=== PATIENT | female | born 1995 | race African-American/Black ===

== ENCOUNTER 2020-03-19 14:15 | Outpatient (CLI) | payer OTHER, SELFPAY ==
[~2020-03-19] VITALS: Ht 167.6 cm; Wt 92.3 kg
[2020-03-19 14:34] VITALS: BP 110/57
[2020-03-19] MEDS ORDERED: ACET-683 PO (14:36)
[2020-03-19] MEDS ORDERED: PRENTAB9 PO (14:36)
[2020-03-19 15:30] VITALS: BP 120/60
--- NOTE | 2020-03-19 15:47 | IPNPDOC ---
Obstetrical Progress Note Date of Service Mar 19, 2020 Subjective 24yo at 29wks presents with intermitting sharp pelvic pain. Worse with movement and stretching. Denies vaginal bleeding, f/c/n/v/, dysuria, flank pain, LOF or ctx. Reports active movement. O: vss, AF Cat 1 tracing gen: well appearing abd: soft, nttp UA; wnl A/P: 24yo at 29wk with round ligament pain. reassuring status -home with abdominal binder - f/u Apr 08 at OB appt. Objective Vital Signs Date Time Temp Pulse Resp B/P (MAP) Pulse Ox O2 Delivery O2 Flow Rate FiO2 03/19/20 15:30 97.0 93 18 120/60 (80) 03/19/20 14:34 98 Room Air Assessment Variability: Moderate Heart Rate Tracing: Category I Tocometer Contractions: No Assessment and Plan Age: 24 : 2 Livin Status: Reassuring CONI ALVARES MD. Mar 19, 2020 15:47
== END 2020-03-19 15:34 | disposition home or self-care (01) ==
LOC: M LDO 14:15
PROVIDERS: ATTEND Obstetrics & Gynecology
DX: O26.893 Other specified pregnancy related conditions, third trimester (principal); R10.2 Pelvic and perineal pain; Z3A.29 29 weeks gestation of pregnancy
CPT/HCPCS: 81001; G0378; G0463

== ENCOUNTER 2020-05-22 00:27 | Outpatient (CLI) | payer OTHER ==
[~2020-05-22] VITALS: Ht 167.6 cm; Wt 96.7 kg
[~2020-05-22 00:27] MED LIST: ACET-683 PO; PRENTAB9 PO
[2020-05-22 00:59] VITALS: BP 115/64
[2020-05-22 02:02] VITALS: BP 110/58
[2020-05-22 02:56] VITALS: BP 124/67
--- NOTE | 2020-05-22 04:03 | IPNPDOC ---
Text Note Date of Service The patient was seen on 05/22/20. NOTE 24 YO SEEN TRIAGE COMPLAINTS CONTRACTIONS Q 6 MINUTES MODERATE INTENSITY NO VAGINAL LOSS NO BLEEDING GOOD MOVEMENT AT 38.2 WEEKS RISK FACTORS PP DEPRESSION LATE TRANSFER OF CARE PLAN EXAMINATION CERVIX POSTERIOR 1 CM THICK REVIEWED CATAGORY 1 STRIP. RECHECK 1 HOUR LATER CONTRACTIONS SPACED OUT NO CHANGE IN CERVIX PATIENT DISCHARGED WITH PRECAUTIONS UNDELIVERED VS,Fishbone, I+O VS, Fishbone, I+O Vital Signs Date Time Temp Pulse Resp B/P (MAP) Pulse Ox O2 Delivery O2 Flow Rate FiO2 05/22/20 02:56 95 124/67 (86) 05/22/20 02:56 98.1 Erich Putnam MD May 22, 2020 04:02
== END 2020-05-22 03:00 | disposition home or self-care (01) ==
LOC: M LDO 00:27
PROVIDERS: ATTEND Obstetrics & Gynecology
DX: O47.1 False labor at or after 37 completed weeks of gestation (principal); Z3A.38 38 weeks gestation of pregnancy
CPT/HCPCS: 59025; G0378; G0463

== ENCOUNTER 2020-05-29 16:35 | Outpatient (CLI) | payer OTHER ==
[~2020-05-29] VITALS: Ht 167.6 cm; Wt 98.6 kg
[2020-05-29 16:50] VITALS: BP 122/71
--- NOTE | 2020-05-29 17:59 | IPNPDOC ---
Text Note Date of Service The patient was seen on 05/29/20. NOTE 25 yo at 39+1 weeks gestation presents to L&D with the complaint of intermittent contractions and pelvic pressure. She also reports some brown discharge. She denies leaking fluid or significant bleeding. She endorses excellent movement. She had her membranes stripped in the office yesterday and her symptoms started after that. Chaperoned by L&D RN Vitals - VSS, afebrile, normotensive, non tachycardic General - Laying in bed, NAD Abdomen - Gravid uterus. No fundal tenderness Cervix - 2/50/-4. Posterior FHR tracing: Cat I with moderate variability, +accels, no decels. No discrete ctx on toco. Cervix unchanged from exam in the office yesterday. Reassuring status. Patient discharged home with return precautions. IOL scheduled for 03Jun2020. All patient questions answered. 20 minutes of patient care Gopal Greene DO VS,Jeronimo, I+O VS, Elviae, I+O Vital Signs Date Time Temp Pulse Resp B/P (MAP) Pulse Ox O2 Delivery O2 Flow Rate FiO2 05/29/20 16:50 98.7 90 18 122/71 (88) GOPAL GREENE DO May 29, 2020 17:59
== END 2020-05-29 17:50 | disposition home or self-care (01) ==
LOC: M LDO 16:35
PROVIDERS: ATTEND Obstetrics & Gynecology
DX: O26.893 Other specified pregnancy related conditions, third trimester (principal); Z3A.39 39 weeks gestation of pregnancy
CPT/HCPCS: 59025; G0378; G0463

== ENCOUNTER 2020-06-02 05:10 | Inpatient (IN) | payer OTHER ==
[2020-06-02] VITALS (66 sets, daily range): BP systolic 86–134; BP diastolic 46–86
[~2020-06-02] VITALS: Ht 167.6 cm; Wt 96.8 kg
[2020-06-02] MEDS ORDERED: LACTATED RINGER'S 1000 ML IV STA (06:27)
[2020-06-02] MEDS ORDERED: OXYTOCIN DRIP 30 UNITS in IV 1 EA IV SCH (06:30)
--- NOTE | 2020-06-02 06:45 | HPEPDOC ---
Obstetrical History & Physical General Date of Admission Jun 02, 2020 at 06:28 History of Present Illness 25 yo @ 39+5 by LMP Who is admitted for PROM at 2 am with clear fluids ( N itrizine and ferning, possible pooling?). she denies any contractions of bag bleeding. she reports regular movements. she wishes to receive epidural for pain. no other concerns. Information Provided By: Patient Care Care: Good Care Dating Final EDC: Jun 04, 2020 Final EDC by: LMP LMP: Aug 29, 2019 Estimated Date of Confinement: Jun 04, 2020 EGA at Admission: 39 (39+5) Antepartum Course Diagnos(e)s 1, HX OF Depression 2. CAMELIA at 24 wks from [place] Height (inches): 66 Pre- weight (lbs.): 175 Admission Weight (lbs.): 213 Change in Weight (lbs.): 28 Past Medical History Past Obstetrical History : Past Obstetrical History: Multigravida Type of Delivery: Spontaneous Vaginal Del. Sex of Infant: Female Complications: No [employer] History: No pertinent history Past Medical History Medical History Post depression Surgical History: Denies/None, Tooth extraction, [place] teeth Family History Significant Family History: No pertinent family hx Social History Marital Status: Family situation: Spouse/partner home * Smoker: non-smoker Alcohol: Denies Drugs: denies Abuse Violence Screening Have you been hit/kicked/slapp: No Have you been sexually assault: No Imunizations Tdap status: current Influenza Status: needs Medications Scheduled No.137/Iron/Folic Acd ( Vitamin Tablet) 1 Each Tablet, 1 TAB PO DAILY Scheduled PRN Acetaminophen (Acetaminophen) 500 Mg Tablet, 1,000 MG PO Q6H PRN for HEADACHE Physical Examination Physical Examination GENERAL: Alert and oriented times three. BREAST: . ABDOMEN: Gravid and non-tender to touch. FETUS: Is vertex (VTX) by sterile vaginal examination and US HEART RATE: Regular rate and rhythm. LUNGS: Clear to auscultation (CTA). EXTREMITIES: No edema. sve: 4/50/-2, cephalic by US, FLORES 5 cm Vital Signs/I&O Vital Signs Date Time Temp Pulse Resp B/P (MAP) Pulse Ox O2 Delivery O2 Flow Rate FiO2 06/02/20 05:31 98.2 82 118/65 (82) Laboratory Data Urine Culture: No Growth Pertinent Laboratoy Data Blood Type: B+ RBC Antibody Screen: Negative HIV: Negative Hepatitis B: Negative Hepatitis C: Unknown Rapid Plasma Reagin: Nonreactive Rubella: Immune Varicella: Immune Chlamydia/Gonorrhea: Negative Group B Streptococcus: Negative Quad Screen Test: Unknown Cystic Fibrosis: Unknown Glucose Tolerance Test: 105 Anatomy Ultrasound Placenta Location: Posterior Normal Anatomy: Yes Placenta Previa: No Steroid Therapy Steroid Therapy: No Vaginal Examination Dilation: 4 cm Effacement: 50% Station: -2 Cervical Consistency: Soft Cervical Position: Middle Presentation: Cephalic presentation Assessment Heart Rate (FHR): 135 Variability: Moderate Accelerations: Positive Decelerations: None Tocometer Contractions: No Frequency: irregular Duration: less than 60 seconds Strength: palpated as mild Multi-drug resistant Organism: No history of MDRO Assessment/Plan Assessment 25 yo @ 39+5 by LMP Who is admitted for PROM at 2 am with clear fluids. GBS neg, RH positive. cat I tracing on admission. 1. HX of depression Plan Admit and orient. Edge Stitcher and consent. Diet:clear Group B Streptococcus (GBS) negative. Labs and intravenous (IV) per unit protocol. Counseled on Pitocin and Augmentation of labor (IOL). Lactated Ringers (LR): Bolus 1000 mL, then at 125 mL/hr. Anticipate normal spontaneous delivery (). C-S as appropriate. SEVERO CASSIDY MD Jun 02, 2020 06:45
[2020-06-02 07:12] LABS: HEMATOCRIT 36.6 % (36.0-47.0); HEMOGLOBIN 11.6 g/dl (12.0-15.5); MEAN CORPUSCULAR HEMOGLOBIN 26.4 pg (27.0-33.0); MEAN CORPUSCULAR HGB CONC 31.7 g/dl (32.0-36.5); MEAN CORPUSCULAR VOLUME 83.2 fl (80.0-96.0); PLATELET COUNT, AUTOMATED 204 10^3/uL (150-450); WHITE BLOOD COUNT 9.9 10^3/uL (4.0-10.0)
[2020-06-02] MEDS ORDERED: FENTANYL 2MCG/ML ROPIVACAINE 0.2% IN 0.9% NACL 100ML IVBAG As Ordered ONE (08:00)
[2020-06-02] MEDS ORDERED: ePHEDrine SULFATE 25 MG/5 ML(5MG/ML) SYRINGE As Ordered ONE ×2 (09:13→11:59)
[2020-06-02] MEDS ORDERED: diphenhydrAMINE 50MG/ML VIAL (J1200) IV PRN (09:15)
[2020-06-02] MEDS ORDERED: EPIDURAL/PCA KEYS XX PRN (09:15)
[2020-06-02] MEDS ORDERED: ONDANSETRON 4MG/2ML VIAL IV PRN (09:15)
[2020-06-02] MEDS ORDERED: EPIDURAL COMMENT XX SCH (09:15)
[2020-06-02] MEDS ORDERED: FENTANYL/ROPIVACAINE/NACL BAG 100 ML EPIDURAL SCH (09:15)
[2020-06-02] MEDS ORDERED: NALOXONE INJ 0.4MG/1ML VIAL (J2310 PER 1MG) IV PRN (09:15)
[2020-06-02] MEDS ORDERED: REFRIGERATOR IV KEYS XX PRN (09:15)
[2020-06-02] MEDS ORDERED: LACTATED RINGER'S 1000 ML IV PRN ×2 (09:15→12:30)
[2020-06-02] MEDS: ePHEDrine SULFATE 25 MG/5 ML(5MG/ML) SYRINGE IV PRN ×6 (09:15→12:01)
[2020-06-02] MEDS: LR 1,000 ML IV SCH ×2 (09:18→15:25)
--- NOTE | 2020-06-02 10:58 | IPNPDOC ---
Obstetrical Progress Note Date of Service Jun 02, 2020 Subjective Patient reports feeling comfortable after epidural. Denies any complaints. Objective Vital Signs Date Time Temp Pulse Resp B/P (MAP) Pulse Ox O2 Delivery O2 Flow Rate FiO2 06/02/20 09:47 90 18 110/61 (77) 06/02/20 09:25 100 06/02/20 05:31 98.2 Assessment Heart Rate (FHR): 140 Variability: Moderate Accelerations: Positive Decelerations: None Heart Rate Tracing: Category I Tocometer Contractions: Yes Frequency: regular, every 1-5 min. Sterile Vaginal Examination Dilation: 4 cm Effacement (%): 50% Station: -2 Cervical Consistency: Soft Cervical Position: Middle Postion/Presentation: Cephalic presentation Assessment and Plan Status: Reassuring Group B Streptococcus: Negative Anticipate: Vaginal Delivery Additional Comments 25yo at 39+5wks admitted for PROM. Patient started on pitocin protocol, currently at 8mU/min. SVE no change since admission, however, difficulty manag ing blood pressure post-epidural so pitocin was not increased. Will continue to titrate pitocin protocol to adequacy. FHRT cat I. Patient desires to proceed, safe to continue. AMAURY BHATT DO Jun 02, 2020 10:58
[2020-06-02] MEDS ORDERED: ePHEDrine INJ 50 MG/ML VIAL IV PRN (11:45)
[2020-06-02 15:13] LABS: HIV 1&2 SCREEN CENTAUR NEGATIVE (NEGATIVE)
--- NOTE | 2020-06-02 17:27 | DNPDOC ---
[facility] Delivery Note Delivery Note DATE OF DELIVERY: 06/02/2020 PREDELIVERY DIAGNOSIS: 39+5/7 weeks' gestation and labor. POST DELIVERY DIAGNOSIS: Delivered. PROCEDURE: Spontaneous vaginal delivery JR. SYSTEMS ADMINISTRATOR: Dr. Amaury Bhatt ANESTHESIA: Epidural. ESTIMATED BLOOD LOSS: 100 mL. FINDINGS: 7 pound 10 ounce 3470g female , Score 9/9, no nuchal cord, no meconium. DELIVERY SUMMARY: Jana was found to be c/c/+2 and with excellent maternal effort, spontaneous vaginal delivery of a viable term female . Presentation was OA with restitution to LOT with right shoulder anterior position. Anterior shoulder and body delivered without difficulty. No nuchal cord, no meconium appreciated. with spontaneous cry on delivery field therefore placed on maternal abdomen and care transferred to [place] Team. Pitocin IV bolus initiated. In spection revealed an actively bleeding right labial laceration that was repaired and made hemostatic with 4-0 vicryl in running, non-locking fashion. After 6 minutes of delayed cord clamping, three vessel cord clamped x2 and cut by FOB. Third stage spontaneous with intact placenta. Fundal massage revealed firm uterine tone and hemostasis. EBL 100ml. Mother and stable and bonding upon my leaving the room. AMAURY BHATT DO Jun 02, 2020 17:27
[2020-06-03 02:00] VITALS: BP 132/77
[2020-06-03 06:00] VITALS: BP 132/61
--- NOTE | 2020-06-03 08:29 | IPNPDOC ---
Progress Note Date of Service: Jun 03, 2020 Day#: 1 Progress Note SUBJECT: Jana is a 25yo G2 now P2 s/p doing well day # 1. She has been ambulating, voiding spontaneously without issue and tolerating regular diet. Breast feeding without issue. She had an episode of heavy bleeding 3 hours after delivery that responded to PO methergine and notes that her lochia has decreased and is light in nature this morning. Reports pain controlled. OBJECTIVE: VITAL SIGNS: Within normal limits, afebrile. Alert and oriented times three. Abdomen: Fundus firm at U-1. Soft, NTTP. ASSESSMENT: Jana is a 25yo G2 now P2 s/p doing well day # 1. Vitals within normal limits, afebrile, hemodynamically stable with no evidence of infection. PLAN: 1. Discharge to home tomorrow. 2. Continue current pain mgmt. 3. Encourage breast feeding and ambulation. 4. Encourage ambulation OOB. 5. Routine PP visit in 6 weeks in clinic. 6. Discussed return precautions at length. VS, I&O, 24H, Fishbone Vital Signs/I&O Vital Signs Date Time Temp Pulse Resp B/P (MAP) Pulse Ox O2 Delivery O2 Flow Rate FiO2 06/03/20 06:00 97.7 76 18 132/61 (84) 98 Room Air I&O- Last 24 Hours up to 6 AM 06/03/20 06:00 Intake Total 3958.2 ml Output Total 1650 ml Balance 2308.2 ml AMAURY BHATT DO Jun 03, 2020 08:29
[2020-06-03] MEDS ORDERED: INFLUENZA QUADRIVALENT PF VACCINE 0.5ML SYRINGE IM ONE (09:00)
[2020-06-03] MEDS ORDERED: BOOSTRIX/ADACEL VACCINE (DIPHTH/PERTUSS/ACELL/TETANUS) 0.5ML SYR IM ONE (09:00)
[2020-06-03 09:56] VITALS: BP 139/62
[2020-06-03 14:04] VITALS: BP 117/58
[2020-06-03 18:00] VITALS: BP 118/62
[2020-06-03 22:21] VITALS: BP 129/58
[2020-06-04 02:14] VITALS: BP 127/72
[2020-06-04] MEDS ORDERED: IBUP80TA PO (05:49)
--- NOTE | 2020-06-04 05:55 | DS.PDOC ---
Discharge Summary General Date of Admission Jun 02, 2020 at 06:28 Date of Discharge Jun 04, 2020 Discharge Summary HOSPITAL COURSE: Ms. Macias is a 25 yo G2 now P2 who was admitted for labor and underwent an uncomplicated on 02Jun2020. Her course has been unremarkable. On her day of discharge she met all appropriate discharge criteria. She was ambulating, voiding, tolerating a regular diet, had minimal lochia, and her pain was well controlled with PO pain medications. DISCHARGE MEDICATIONS: Please see below. ALLERGIES: Please see below. PHYSICAL EXAMINATION ON DISCHARGE: VITAL SIGNS: Please see below. GENERAL: AAOX3, laying in bed, NAD, pleasant and conversant ABDOMINAL EXAMINATION: Abdomen soft, nondistended. Fundus firm at U-2. No fundal tenderness. EXTREMITIES: No edema PSYCHIATRIC EXAMINATION: Affect appropriate LABORATORY DATA: Please see below. ACTIVITY: Pelvic rest for 6 weeks. DIET: Regular DISCHARGE PLAN: Discharge home DISPOSITION: .Discharge home on 04Jun2020 DISCHARGE INSTRUCTIONS: 1. Pelvic rest for 6weeks ITEMS TO FOLLOWUP ON ON OUTPATIENT: 1. visit in 6 weeks DISCHARGE CONDITION: Stable TIME SPENT ON DISCHARGE: Greater than 20 minutes. Gopal Khoury DO Vital Signs/I&Os Vital Signs Date Time Temp Pulse Resp B/P (MAP) Pulse Ox O2 Delivery O2 Flow Rate FiO2 06/04/20 02:14 97.6 84 18 127/72 (90) 06/03/20 18:00 99 06/03/20 14:04 Room Air Discharge Medications Scheduled No.137/Iron/Folic Acd ( Vitamin Tablet) 1 Each Tablet, 1 TAB PO DAILY, (Reported) Scheduled PRN Acetaminophen (Acetaminophen) 500 Mg Tablet, 1,000 MG PO Q6H PRN for HEADACHE, (Reported) Ibuprofen (Ibuprofen) 800 Mg Tablet, 800 MG PO Q8HP PRN for PAIN LEVEL 6-10 Allergies Coded Allergies: No Known Allergies (Unverified , 06/02/20) GOPAL KHOURY DO Jun 04, 2020 05:55
[2020-06-04 06:24] VITALS: BP 117/76
== END 2020-06-04 15:04 | disposition home or self-care (01) | DRG 807 ==
LOC: M LDO 05:10 → M LDI 06:28 → M OBS 19:54
PROVIDERS: ADMIT Obstetrics & Gynecology
PROC: 10E0XZZ Delivery of Products of Conception, External Approach (ICD-10-PCS; principal; 2020-06-02)
PROC: 0HQ9XZZ Repair Perineum Skin, External Approach (ICD-10-PCS; 2020-06-02)
DX: O42.02 Full-term premature rupture of membranes, onset of labor within 24 hours of rupture (principal); Z37.0 Single live birth; Z3A.39 39 weeks gestation of pregnancy; O70.0 First degree perineal laceration during delivery

== ENCOUNTER 2021-12-08 13:01 | Day surgery (SDC) | payer OTHER ==
[~2021-12-08] VITALS: Ht 167.6 cm; Wt 87.3 kg
[~2021-12-08 13:01] MED LIST changes: +IBUP80TA PO
[2021-12-08 14:27] LABS: BASO % 0.2 % (0.0-1.0); EOS # 0.1 10^3/uL (0.0-0.5); EOS % 0.8 % (0.0-3.0); HEMATOCRIT 39.7 % (36.0-47.0); HEMOGLOBIN 13.4 g/dl (12.0-15.5); LYMPH # 2.7 10^3/uL (1.5-5.0); LYMPH % 31.3 % (24.0-44.0); MEAN CORPUSCULAR HEMOGLOBIN 29.6 pg (27.0-33.0); MEAN CORPUSCULAR HGB CONC 33.8 g/dl (32.0-36.5); MEAN CORPUSCULAR VOLUME 87.8 fl (80.0-96.0); MONO # 0.5 10^3/uL (0.0-0.8); MONO % 6.2 % (2.0-8.0); NEUTROPHILS # 5.2 10^3/uL (1.5-8.5); NEUTROPHILS % 61.1 % (36.0-66.0); PLATELET COUNT, AUTOMATED 236 10^3/uL (150-450); RED BLOOD COUNT 4.52 10^6/uL (4.00-5.40); WHITE BLOOD COUNT 8.6 10^3/uL (4.0-10.0)
[2021-12-08 14:49] LABS: BLOOD UREA NITROGEN 8 MG/DL (7-18); CALCIUM LEVEL 9.2 MG/DL (8.5-10.1); CARBON DIOXIDE LEVEL 25 MEQ/L (21-32); CHLORIDE LEVEL 111 MEQ/L (98-107); CREATININE FOR GFR 0.63 MG/DL (0.55-1.30); GLOMERULAR FILTRATION RATE > 60.0 (>60); GLUCOSE, FASTING 76 MG/DL (70-100); HCG, SERUM QUANTITATIVE 857 MIU/ML; POTASSIUM SERUM 3.8 MEQ/L (3.5-5.1); SODIUM LEVEL 141 MEQ/L (136-145)
[2021-12-08] MEDS ORDERED: MORPHINE 4 MG/ML 1ML VIAL/SYRINGE IV ONE (16:35)
[2021-12-08] MEDS ORDERED: diphenhydrAMINE 50MG/ML VIAL (J1200) IV ONE (17:20)
[2021-12-08] MEDS ORDERED: FERR325T3 PO (17:31)
[2021-12-08] MEDS ORDERED: C 50TAB PO (17:31)
[2021-12-08] MEDS ORDERED: ACET1TAB55 PO (17:31)
[2021-12-08] MEDS ORDERED: HOME MED LIST COMPLETE! XX SCH (17:35)
[2021-12-08] MEDS ORDERED: BUPIVACAINE HCL 0.25% 30ML VIAL As Ordered ONE (17:53)
[2021-12-08] MEDS ORDERED: KETOROLAC 60MG 2ML VIAL As Ordered ONE (19:05)
[2021-12-08] MEDS ORDERED: dexameTHASONE 4 MG/ML 1ML VIAL (J1100 PER 1MG) As Ordered ONE (19:05)
[2021-12-08] MEDS ORDERED: ROCURONIUM BROMIDE 50 MG/5 ML VIAL As Ordered ONE (19:05)
[2021-12-08] MEDS ORDERED: ACETAMINOPHEN 1000MG 100ML IV BTL (OFIRMEV) (J0131 PER 10MG) As Ordered ONE (19:05)
[2021-12-08] MEDS ORDERED: fentaNYL 250 MCG/5 ML INJECTION As Ordered ONE (19:05)
[2021-12-08] MEDS ORDERED: ONDANSETRON 4MG 2ML VIAL As Ordered ONE (19:05)
[2021-12-08] MEDS ORDERED: LIDOCAINE 2% 100MG/5ML SDV (FOR ANES.) As Ordered ONE (19:05)
[2021-12-08] MEDS ORDERED: MIDAZOLAM INJ 2MG/2ML VIAL (J2250 PER 1MG) As Ordered ONE (19:05)
[2021-12-08] MEDS ORDERED: DESFLURANE 240 ML INHALANT As Ordered ONE (19:05)
[2021-12-08] MEDS ORDERED: METOCLOPRAMIDE INJ 10MG/2ML VIAL (J2765 PER 1) As Ordered ONE (19:05)
[2021-12-08] MEDS ORDERED: SUGAMMADEX SODIUM 500 MG/5 ML VIAL (BRIDION) As Ordered ONE (19:05)
[2021-12-08] MEDS ORDERED: fentaNYL 100 MCG/2 ML INJECTION As Ordered ONE (19:05)
[2021-12-08] MEDS ORDERED: propofoL 200 MG/20 ML VIAL As Ordered ONE (19:05)
[2021-12-08] MEDS ORDERED: METOCLOPRAMIDE INJ 10MG/2ML VIAL (J2765 PER 1) IV PRN (20:05)
[2021-12-08] MEDS ORDERED: oxyCODONE 5MG TAB PO PRN (20:05)
[2021-12-08] MEDS ORDERED: LR 1,000 ML IV SCH (20:05)
[2021-12-08] MEDS ORDERED: fentaNYL 100 MCG/2 ML INJECTION IV PRN (20:05)
[2021-12-08] MEDS ORDERED: ONDANSETRON 4MG 2ML VIAL IV PRN (20:05)
[2021-12-08] MEDS: HYDROMORPHONE HCL 0.5 MG/ 0.5 ML SYRINGE (J1170 PER 1) IV PRN ×2 (20:17→20:23)
[2021-12-08] MEDS ORDERED: oxyCODONE 5MG TAB PO ONE (20:30)
[2021-12-08] MEDS ORDERED: KETOROLAC 30 MG/ML 1ML VIAL IV ONE (20:30)
[2021-12-08 20:58] VITALS: BP 126/79
[2021-12-09] MEDS ORDERED: OXYC-517 PO (11:36)
[2021-12-09] MEDS ORDERED: IBUP-1022 PO (11:36)
== END 2021-12-08 21:19 | disposition home or self-care (01) ==
LOC: M ED 13:01 → M SDC 13:02 → M ED 18:06 → M SDC 21:19
PROVIDERS: ATTEND Obstetrics & Gynecology
DX: O00.90 Unspecified ectopic pregnancy without intrauterine pregnancy (principal); O99.341 Other mental disorders complicating pregnancy, first trimester; F32.A Depression, unspecified; F41.9 Anxiety disorder, unspecified; Z88.5 Allergy status to narcotic agent
CPT/HCPCS: 59151; 76801; 76817; 80048; 84702; 85025; 86850; 86900; 86901; 87426; 88305; 93976; 96374; 96375; 99284; J0131; J1100; J1170; J1200; J1885; J2250; J2270; J2405; J2765; J3010

== ENCOUNTER 2021-12-09 11:27 | Emergency (ER) | payer OTHER ==
[~2021-12-09] VITALS: Ht 167.6 cm; Wt 82.7 kg
[~2021-12-09 11:27] MED LIST changes: +ACET1TAB55 PO; +C 50TAB PO; +FERR325T3 PO
[2021-12-09 11:28] VITALS: BP 130/81
[2021-12-09] MEDS ORDERED: OXYC-517 PO (11:36)
[2021-12-09] MEDS ORDERED: IBUP-1022 PO (11:36)
[2021-12-09 15:27] LABS: HEMATOCRIT 37.6 % (36.0-47.0); HEMOGLOBIN 12.7 g/dl (12.0-15.5); MEAN CORPUSCULAR HEMOGLOBIN 30.1 pg (27.0-33.0); MEAN CORPUSCULAR HGB CONC 33.8 g/dl (32.0-36.5); MEAN CORPUSCULAR VOLUME 89.1 fl (80.0-96.0); PLATELET COUNT, AUTOMATED 197 10^3/uL (150-450); RED BLOOD COUNT 4.22 10^6/uL (4.00-5.40); WHITE BLOOD COUNT 11.9 10^3/uL (4.0-10.0)
[2021-12-09] MEDS ORDERED: KETOROLAC 30 MG/ML 1ML VIAL IV ONE (15:30)
[2021-12-09] MEDS ORDERED: PERCOCET 5MG/325MG TAB PO ONE (17:20)
== END 2021-12-09 17:53 | disposition home or self-care (01) ==
LOC: M ED 11:27
DX: R07.9 Chest pain, unspecified (principal); K66.8 Other specified disorders of peritoneum; G89.18 Other acute postprocedural pain; Z88.5 Allergy status to narcotic agent
CPT/HCPCS: 74021; 80047; 85027; 96374; 99283; J1885